=== PATIENT | female | born 1995 | race Caucasian/White ===

== ENCOUNTER 2025-01-16 12:19 | Emergency (ER) | payer OTHER ==
[~2025-01-16] VITALS: Ht 162.6 cm; Wt 64.9 kg
[2025-01-16] MEDS ORDERED: CEPHALEXIN750 MG PO (13:57)
[2025-01-16] MEDS ORDERED: PEPCID AC20 MG PO (13:57)
[2025-01-16] MEDS ORDERED: TETANUS & DIPHTHERIA TOX,ADULT 0.5 ML VIAL IM ONE (14:00)
[2025-01-16] MEDS ORDERED: CEFTRIAXONE SODIUM 1,000 MG VIAL IM ONE (14:00)
[2025-01-16] MEDS ORDERED: LIDOCAINE HCL 1% 10ML VIAL ONE (14:25)
[2025-01-16] MEDS ORDERED: CEFTRIAXONE SODIUM 1,000 MG VIAL ONE (14:25)
[2025-01-16] MEDS ORDERED: DIPHTH,PERTUSS(ACELL),TET VAC 0.5 ML SYRINGE IM ONE (14:37)
== END 2025-01-16 14:48 | disposition home or self-care (01) ==
LOC: ER 12:22
DX: S41.151A Open bite of right upper arm, initial encounter (principal); W55.01XA Bitten by cat, initial encounter; Y93.89 Activity, other specified; Y92.89 Other specified places as the place of occurrence of the external cause; Y99.8 Other external cause status
CPT/HCPCS: 90471; 90714; 96372; 99282; J0696; J1670; J3490